=== PATIENT | male | born 1950 | race Caucasian/White ===

== ENCOUNTER 2020-01-02 14:39 | Emergency (ER) | payer MEDICARE, SELFPAY ==
--- NOTE | ~2020-01-02 | XR_ITS ---
EXAMINATION: XR ankle LT min 3V DATE: 01/02/2020 15:31 INDICATION: Posterior left ankle and calf pain post fall TECHNIQUE: Anteroposterior, oblique, mortise, and lateral views of the left ankle were obtained. COMPARISON: None. FINDINGS: Alignment is normal. No fracture. Joint spaces are well maintained. Small enthesopathic ossicle at t he distal Achilles tendon. Tiny plantar calcaneal spur. Soft tissues are unremarkable. No ankle joint effusion. IMPRESSION: 1. No left ankle joint effusion or acute osseous abnormality. Reviewed, dictated and finalized at location A.
[2020-01-02 14:41] VITALS: BP 154/88; PULSE 71; RESP 20; TEMP 36.2; O2SAT 97
[2020-01-02] MEDS: IBUPROFEN 600 MG TABLET PO (15:11)
--- NOTE | 2020-01-02 15:11 | ED.LOWEXIN ---
HPI - Extremity Injury (Lower) General Chief Complaint: Extremity Injury, Lower <rPesley Bowers PA-C - Last Filed: 01/02/20 16:30> Stated Complaint: L ankle pain after fall <MARY Hackett Last Filed: 01/02/20 16:30> Time Seen by Provider: 01/02/20 14:46 <Presley Bowers PA-C - Last Filed: 01/02/20 16:30> Source: patient <MARY Hackett Last Filed: 01/02/20 16:30> Mode of arrival: ambulatory <MARY Hackett Last Filed: 01/02/20 16:30> Limitations: no limitations <MARY Hackett Last Filed: 01/02/20 16:30> History of Present Illness HPI Narrative: Patient is a 69-year-old male who fell several feet on his ladder when it collapsed injuring the posterior left ankle at the level of the Achilles has since been unable to bear weight notes aching pain worse with weightbearing and activity denies other injuries or complaints is resting comfortably in the room upon arrival has not taken anything denies head injury low back pain and is otherwise in no distress upon arrival <Presley Bowers PA-C - Last Filed: 01/02/20 16:30> Related Data Home Medications: Home Medications Medication Instructions Recorded Confirmed ascorbic acid (vitamin C) 500 mg PO DAILY 01/02/20 cholecalciferol (vitamin D3) 10 mcg PO DAILY 01/02/20 coenzyme Q10 [Co Q-10] 10 mg PO ONCE 01/02/20 jxydmdlqvzig-iel-jyjf-FA-vit K tablet PO 01/02/20 [Adults Multivitamin] <Presley Bowers PA-C - Last Filed: 01/02/20 16:30> Allergies/Adverse Reactions: Allergies Allergy/AdvReac Type Severity Reaction Status Date / Time No Known Allergies Allergy Verified 01/02/20 14:51 <MARY Hackett Last Filed: 01/02/20 16:30> Review of Systems Review of Systems: All systems reviewed & are unremarkable except as noted in HPI and below <MARY Hackett Last Filed: 01/02/20 16:30> [facility] Social History Social History: Social History (Updated 01/02/20 @ 15:12 by Presley Bowers PA-C) Smoking status: Never smoker <Presley Bowers PA-C - Last Filed: 01/02/20 16:30> Exam Narrative: Exam Narrative: GENERAL: Well-appearing, well-nourished, and in no acute distress. HEAD: Normocephalic, atraumatic. EYES: PERRLA and EOMI. ENT: Nares clear, no rhinorrhea or epistaxis. Mucous membranes moist. EXTREMITIES: Tenderness to the posterior left ankle with drop-off at the level of the Achilles SKIN: Warm, dry, no rash. NEURO: No focal deficits. Alert and oriented x3. Neurovascularly intact. Capillary refill less than 2 seconds PSYCH: Normal mood and affect. <Presley Bowers PA-C - Last Filed: 01/02/20 16:30> Course Course Emergency Course: Patient aware of case findings treatment plan and diagnosis agreeing to follow-up as directed or to return if symptoms worsen or concern <Presley Bowers PA-C - Last Filed: 01/02/20 16:30> VIDEO OPERATOR/PA Physician Supervision For this patient encounter, I reviewed the VIDEO OPERATOR or PA documentation, treatment plan, and medical decision making; and I had [id number] time with this patient. Patient seen at bedside in conjunction with physician car rental sales assistant. Patient has obvious Achilles tendon rupture on exam with readily palpable defect. Patient we placed in splint and is advised to follow-up with orthopedic surgery as he will need surgical repair. Patient reports his pain is well controlled at this time with Advil he took prior to arrival to the emergency department. Due to concern about possible pain at bedtime, he will be prescribed a small number of hydrocodone that he can take at bedtime for breakthrough pain. <Patricia Martínez MD - Last Filed: 01/02/20 15:34> Consultations Consultation #1: Discussed case with orthopedic surgery who will follow the patient in clinic <Persley Bowers PA-C - Last Filed: 01/02/20 16:30> Date: 01/02/20 <Presley Bowers PA-C - Last Filed: 01/02/20 16:30> Time:
[2020-01-02 15:47] VITALS: TEMP 36.2
== END 2020-01-02 16:50 | disposition home or self-care (01) ==
PROVIDERS: Emergency Provider Emergency Medicine; PCP Family Medicine
DX: S86.012A Strain of left Achilles tendon, initial encounter (principal); W11.XXXA Fall on and from ladder, initial encounter
CPT/HCPCS: 29515; 73610; 99283; A9270

== ENCOUNTER 2020-01-11 10:42 | Outpatient (CLI) | payer MEDICARE, SELFPAY ==
--- NOTE | ~2020-01-11 | MR_ITS ---
EXAMINATION: MR foot LT wo con DATE: 01/11/2020 12:31 INDICATION: Strain of left Achilles tendon, initial encounter. TECHNIQUE: Magnetic resonance imaging (MRI) of the left foot was performed without intravenous contra st. Sequences included sagittal PD-weighted FS FSE, sagittal PD-weighted FSE, coronal PD-weighted FS FSE, coronal PD-weighted FSE, axial PD-weighted FS FSE, and axial PD-weighted FSE. COMPARISON: Left ankle radiographs 01/02/2020 FINDINGS: Medial ankle ligaments: The superficial and deep components of the deltoid ligament are intact. Lateral ankle ligaments: There are changes of sprain of anterior talofibular ligament characterized by thickening and increase d signal intensity. Calcaneofibular ligament, posterior talofibular ligament, and anterior and chemical research technician ior tibiofibular ligaments are normal. Tendons: The medial and anterior ankle tendons are normal. There are longitudinal split tears of the peroneus longus and peroneus brevis tendons. There is a complete tear of Achilles tendon 5 cm proximal to its distal insertion with 3.5 cm tendon gap. There is an enthesophyte at the calcaneal attachment of the distal tendon. Plantar fascia: The plantar fascia is normal. There is an enthesophyte at the calcaneal attachment. Bones/other: Bone alignment is normal. No fracture. The talar dome is normal. Fluid: There are small ankle and subtalar joint effusions. IMPRESSION: 1. Complete tear of Achilles tendon. Reviewed, dictated and finalized at location A.
== END 2020-01-11 10:43 | disposition home or self-care (01) ==
LOC: ANHIMG 10:48
PROVIDERS: PCP Family Medicine; Visit Provider Orthopaedic Surgery
DX: S86.012A Strain of left Achilles tendon, initial encounter (principal)
CPT/HCPCS: 73718

== ENCOUNTER 2020-01-15 00:32 | Day surgery (SDC) | payer MEDICARE, SELFPAY ==
[2020-01-15] VITALS (11 sets, daily range): BP systolic 125–145; BP diastolic 76–86; PULSE 53–67; RESP 8–20; TEMP 36–36.2; O2SAT 94–100; BMI 28.5
[2020-01-15] MEDS: CELECOXIB 200 MG CAPSULE PO (09:15)
[2020-01-15] MEDS: LACTATED RINGERS 1,000 ML 30 ML IV CONT ×2 (09:30→13:13)
--- NOTE | 2020-01-15 10:11 | WPDANESEPPF ---
Anes - Initial Pre Proc Eval Procedure: Operation Date: 01/15/20 10:30 Proposed Procedures p Left Achilles Tendon Repair - Doron Lara MD Date/Time: 01/15/20 10:11 Surgeon: Doron Lara MD Pre Op Diagnosis: left achilles tendon rupture Patient Data Age: 69 Gender: M Height: 1.68 m Weight: 80.1 kg Last Vital Signs Temp 36.2 C L 01/15/20 08:32 Pulse 66 01/15/20 08:32 Resp 16 01/15/20 08:32 BP 145/85 H 01/15/20 08:32 Pulse Ox 98 01/15/20 08:32 Allergies Allergy/AdvReac Type Severity Reaction Status Date / Time No Known Allergies Allergy Verified 01/15/20 09:21 Home Medications Medication Instructions Recorded Confirmed Type hydrocodone-acetaminophen [[place]] 1 tablet PO Q6H PRN #8 tablet 01/02/20 01/15/20 Rx rcggwjcqgmlf-qxq-gqlc-FA-vit K 1 tablet PO DAILY 01/02/20 01/15/20 History [Adults Multivitamin] Patient hx anesthesia problems: none Family hx anesthesia problems: none [facility] Past Medical History Medical History (Updated 01/15/20 @ 10:11 by Nolan Morse MD) Overweight (BMI 25.0-29.9) Social History Social History Smoking status: Never smoker Anes - Eval Final PreProcedure Day of Procedure 01/15/20 10:11 Patient weight: overweight Heart: regular rate and rhythm Lungs: clear to auscultation and normal air movement Airway: Mallampati scale class II Neurological: alert and oriented Last oral intake: >/= 8 hours ASA classification: II Emergent: no Anesthetic plan: proceed Anesthesia type and monitoring: general LMA and ETT Informed Consent: The patient's anesthetic plan and its attendant risks and benefits were discussed with the patient/family/POA. Questions were solicited and answers provided to the satisfaction of the patient/family/POA.
--- NOTE | 2020-01-15 10:38 | WPDHPUPDATE1 ---
History and Physical Update Update Date/Time: 01/15/20 10:38 History and Physical has been reviewed, including an updated exam of the patient. There are NO changes in the patient's condition. Risks, benefits, and alternatives have been discussed and questions answered. Patient agrees to proceed with procedure.
[2020-01-15] MEDS: ceFAZolin 2 GM/D5W 50 ML 2 GM/50 ML BAG IVPB (10:40)
--- NOTE | 2020-01-15 13:13 | PM.OP ---
Procedure Note - Brief Procedure Note - Brief Date of procedure: 01/15/20 Pre-op diagnosis: left achilles tendon rupture Procedure performed: LEFT ACHILLES REPAIR Anesthesia: GETA Surgeon: Doron Lara MD Estimated blood loss (mL): 10 Complications: No immediate complications Condition: stable Disposition: PACU
--- NOTE | 2020-01-15 17:42 | OP_ITS ---
DATE OF PROCEDURE: 01/15/2020 PREOPERATIVE DIAGNOSIS: Left Achilles rupture. POSTOPERATIVE DIAGNOSIS: Left Achilles rupture. PROCEDURE PERFORMED: Repair of left Achilles tendon. SURGEON: Doron Lara M.D. ANESTHESIA: General. COMPLICATIONS: None. INDICATIONS: This is a 69-year-old male who injured his left foot and he ruptured his Achilles tendon and he was indicated for left Achilles tendon repair. DESCRIPTION OF PROCEDURE: The patient was taken to the operating room in stable condition and placed in supine position. General anesthesia was induced and he was placed in the prone position, and the left lower extremity was prepped and draped sterilely from the toes to the calf region. Tourniquet was inflated. The limits of the proximal and the distal limits of the tendon were identified and marked, and then an incision was made in between the proximal and distal stumps of the Achilles tendon. Subcutaneous tissues were dissected and then the fascia was identified and that was dissected until the proximal stump of the Achilles tendon was identified. There was some scar tissue that was removed with digital palpation around the proximal stump and the distal stump. Once that was performed, Arthrex Achilles jig then was placed within the tendon, so that the main body of the proximal end was parallel to the jig guide. Once that was performed, then the #1 stitch was applied through a percutaneous needle passage and this continued in the standard fashion until the fifth suture was passed through the jig. It was observed that the sutures were passed within the midsubstance of the tendon through direct visualization. Once that was performed, then the jig was removed and this advanced all the sutures through the midsubstance of the tendon and out through the incision. Once that was performed, then there was minimal distal stump of the Achilles, so at this point, a tunneling under the skin was performed with a hemostat and then an incision was made around the calcaneus just adjacent to the Achilles tendon insertion. Two incisions were made, both on either side of the Achilles tendon insertion. Two swivel locks then were assembled and 3 sutures were passed in the swivel lock and with the ankle in equinus. The I into the bone with the attached appropriate sutures. The bite was excellent by the SwiveLock anchors. Once that was performed, then the distal stump was identified once again and #2 Fiber tape was woven through the distal stump, also #2 Fiber tape was woven to the proximal stump and this then was tied together adding extra support to the repair. The repair was excellent. The passive motion was used to take the foot out of equinus to neutral dorsiflexion and the repair was observed directly and was found to be excellent. Once that was performed, the tourniquet was deflated, the bleeders were cauterized, the wounds were irrigated thoroughly and then 3-0 Vicryl was used to approximate the subcutaneous tissues and a 3-0 Monoderm was used as a subcuticular stitch on the incisions and then Dermabond and Steri-Strips were placed. Sterile dressing was applied and then a plaster splint with the foot in equinus was placed. Once the splint had hardened, he was placed in the supine position, extubated and sent to Recovery. Severo Nellie MT: Kellee
== END 2020-01-15 15:51 | disposition home or self-care (01) ==
PROVIDERS: PCP Family Medicine; Visit Provider Orthopaedic Surgery
PROC: (CPT 27650; principal; 2020-01-15 10:30)
DX: S86.012A Strain of left Achilles tendon, initial encounter (principal); X58.XXXA Exposure to other specified factors, initial encounter
CPT/HCPCS: 27650; A9270; J0330; J0690; J1100; J2405; J2704; J3010; J7120

== ENCOUNTER 2020-04-06 02:13 | Outpatient (CLI) | payer MEDICARE, SELFPAY ==
[2020-04-06 18:38] LABS: SARS-CoV-2 RNA PCR Negative
== END 2020-04-06 02:14 | disposition home or self-care (01) ==
LOC: ANHCOVIDDT 02:14
PROVIDERS: PCP Family Medicine; Visit Provider Surgery
DX: Z01.812 Encounter for preprocedural laboratory examination (principal); Z11.59 Encounter for screening for other viral diseases
CPT/HCPCS: 87635; C9803; U0003

== ENCOUNTER 2020-04-08 01:43 | Day surgery (SDC) | payer MEDICARE, SELFPAY ==
[2020-04-01 14:02] VITALS: BMI 25.9
[2020-04-08] VITALS (7 sets, daily range): BP systolic 108–128; BP diastolic 66–73; PULSE 45–68; RESP 10–16; TEMP 36.6–36.9; O2SAT 97–100
[2020-04-08] MEDS: ACETAMINOPHEN 500 MG TABLET 1000 MG PO (07:50)
[2020-04-08] MEDS: LACTATED RINGERS 1,000 ML 30 ML IV CONT ×3 (08:25→11:07)
[2020-04-08] MEDS: KETOROLAC 15 MG/ML VIAL (*BKC) IV PUSH (08:25)
--- NOTE | 2020-04-08 08:39 | WPDANESEPP ---
Anes - Eval Pre Procedure Procedure: Operation Date: 04/08/20 09:00 Proposed Procedures p Bilateral Inguinal Hernia Repair - George Ortiz MD Date/Time: 04/08/20 08:39 Surgeon: brie Preop Diagnosis: bilateral inguinal hernias Pre Op Diagnosis: Jeramy Inguinal Hernia Patient Data Age: 69 Gender: M Height: 1.68 m Weight: 70.6 kg Last Vital Signs Temp 36.6 C 04/08/20 08:02 Pulse 63 04/08/20 08:02 Resp 16 04/08/20 08:02 BP 128/72 04/08/20 08:02 Pulse Ox 97 04/08/20 08:02 Allergies Allergy/AdvReac Type Severity Reaction Status Date / Time No Known Allergies Allergy Verified 04/08/20 08:12 Home Medications Medication Instructions Recorded Confirmed Type Adults Multivitamin 1 tablet PO DAILY 01/02/20 04/08/20 History ibuprofen 200 mg tablet 200 mg PO Q6H PRN 03/21/20 04/08/20 History Patient hx anesthesia problems: none Family hx anesthesia problems: none Prior Surgeries: Achilles tendon repair [facility] Past Medical History Medical History Overweight (BMI 25.0-29.9) Surgical History Surgical History History of ankle surgery performed at [place] on January 15, 2020 Family History Family History Father , at age 72 Aneurysm of aorta Alcoholic Mother , at age 75 Chronic obstructive pulmonary disease (COPD) Sibling , at age 68 due to agent orange exposure Agent orange exposure Lung cancer Social History Social History Smoking status: Never smoker Second hand tobacco smoke exposure: No Alcohol intake: current Alcohol use details: TWO DRINKS PER MONTH BEER OR GIN Living arrangements: with family Additional living arrangements comments: Lives at home with Spiritual care concerns: No Exam Day of Procedure 04/08/20 08:39 Patient weight: normal Heart: regular rate and rhythm Lungs: normal air movement Airway: Mallampati scale class II Neurological: alert and oriented
--- NOTE | 2020-04-08 08:42 | WPDHPUPDATE1 ---
History and Physical Update Update Date/Time: 04/08/20 08:42 History and Physical has been reviewed, including an updated exam of the patient. There are NO changes in the patient's condition. Risks, benefits, and alternatives have been discussed and questions answered. Patient agrees to proceed with procedure.
--- NOTE | 2020-04-08 08:42 | WPDANESEFPP ---
Anes - Eval Final PreProcedure Day of Procedure 04/08/20 08:42 Patient weight: overweight Heart: regular rate and rhythm Lungs: clear to auscultation and normal air movement Airway: Mallampati scale class II Neurological: alert and oriented Last oral intake: >/= 8 hours ASA classification: II Emergent: no Anesthetic plan: proceed Anesthesia type and monitoring: general GIVS Informed Consent: The patient's anesthetic plan and its attendant risks and benefits were discussed with the patient/family/POA. Questions were solicited and answers provided to the satisfaction of the patient/family/POA.
[2020-04-08] MEDS: ceFAZolin 2 GM/D5W 50 ML 2 GM/50 ML BAG IVPB (08:51)
--- NOTE | 2020-04-08 12:59 | PM.PROC ---
Procedure Note - Detailed Date of procedure: 04/08/20 Pre-op diagnosis: Jeramy Inguinal Hernia bilateral inguinal hernias Post-op diagnosis: same Procedure performed: repair bilateral inguinal hernias, each side repaired with 8 cm Parietex hernia mesh system Description of procedure: The patient was taken to surgery and IV sedation was administered. Bilateral groins and the genitalia were prepped and draped. We started on the patient's left side. The proposed incision was marked on the skin and then local anesthesia was infiltrated into the skin and the deeper subcutaneous tissues. Incision was made and dissection was carried down through Lee's fascia to the external oblique aponeurosis. Crossing veins were cauterized and divided. The external oblique aponeurosis was then exposed as was the external ring. Additional local anesthetic was infiltrated deep to the aponeurosis in the area of the spermatic cord and inguinal canal contents. We then opened the external oblique aponeurosis laterally and extended this incision medially through the external ring. The leaves of the aponeurosis were freed from the underlying inguinal canal contents. Care was taken not to injure the ileoinguinal nerve which was left attached to the spermatic cord. The spermatic cord was then mobilized medially on a Abigail drain. It was mobilized back to the internal ring. There was a large lipoma of the spermatic cord. This was carefully dissected back to the internal ring. It was then amputated at the internal ring and discarded. The direct hernia was dissected free from the spermatic cord. It was dissected back to its neck. The sac was then incised circumferentially just off the neck. It was divided through the transversalis fascia circumferentially. The hernia sac was then dunked into the retroperitoneum. An 8 centimeter Parietex picayune was chosen. It was folded to form a plug. The plug was placed in the defect. The edges were sutured to the transversalis fascia with interrupted 3 0 Vicryl suture. The hernia defect was also partially closed with interrupted 3 0 Vicryl suture. The patch was then cut to the appropriate size. It was placed over the inguinal canal floor with the lateral leaves passing beyond the cord. The cord and ileoinguinal nerve were then laid over the patch. The external oblique aponeurosis was closed with interrupted 3 0 Vicryl suture. Lee's fascia was closed with interrupted 3 0 Vicryl suture. Four 0 Vicryl subcutaneous and subcuticular skin stitches were placed. The skin was finally closed with a running 4 0 Monocryl skin suture. I then changed sides with the 1st assistant chief train dispatcher and proceeded to repair the right inguinal hernia. The proposed incision was again marked on the skin in the right groin. It was marked in such a way that it was a mirror image of the left side. Local was again infiltrated into the skin and subcutaneous. Incision was made and dissection was carried down through the subcutaneous to the external oblique aponeurosis. The aponeurosis was infiltrated with additional local anesthetic. I then opened the aponeurosis laterally and extended this incision medially through the external ring. The leaves of the aponeurosis were freed from the underlying spermatic cord contents. The ileoinguinal nerve was carefully preserved and was left attached to the spermatic cord. There was a smaller amount of lipomatous tissue associated with the spermatic cord. This was dissected back to the internal ring, amputated and discarded. An even larger direct hernia was found on the right side. This was carefully dissected free from the spermatic cord. It was dissected back to its neck. It occupied most of the direct space. Once it was dissected out fully, I scored just above the neck through the transversalis fascia circumferentially around the hernia. The hernia was then dunked into the retroperitoneum. Another 8 cm Parietex picayune was chosen. It was folded to
== END 2020-04-08 13:07 | disposition home or self-care (01) ==
PROVIDERS: Visit Provider Surgery
PROC: (CPT 49505; principal; 2020-04-08 09:00)
DX: K40.20 Bilateral inguinal hernia, without obstruction or gangrene, not specified as recurrent (principal)
CPT/HCPCS: 49505; A9270; C1781; C9290; J0690; J1100; J1885; J2250; J2405; J2704; J3010; J7120